=== PATIENT | female | born 1940 | race Caucasian/White ===

== ENCOUNTER 2021-02-03 10:15 | Outpatient (CLI) | payer MEDICARE | END 2021-02-03 10:16 | disposition home or self-care (01) | LOC: CSHMAMMO 10:15 | PROVIDERS: ATTEND Internal Medicine | DX: Z12.31 Encounter for screening mammogram for malignant neoplasm of breast (principal); Z13.820 Encounter for screening for osteoporosis; Z78.0 Asymptomatic menopausal state; E28.39 Other primary ovarian failure; Z96.651 Presence of right artificial knee joint | CPT/HCPCS: 77063; 77067; 77080 ==

== ENCOUNTER 2022-02-07 10:17 | Outpatient (CLI) | payer MEDICARE | END 2022-02-07 10:18 | disposition home or self-care (01) | LOC: CSHMAMMO 10:17 | PROVIDERS: ATTEND Internal Medicine | DX: Z12.31 Encounter for screening mammogram for malignant neoplasm of breast (principal) | CPT/HCPCS: 77063; 77067 ==

== ENCOUNTER 2023-01-23 14:58 | Outpatient (CLI) | payer MEDICARE | END 2023-01-23 14:59 | disposition home or self-care (01) | LOC: CSHULT 14:58 | PROVIDERS: ATTEND Internal Medicine | DX: M54.2 Cervicalgia (principal); R22.1 Localized swelling, mass and lump, neck | CPT/HCPCS: 76536 ==